=== PATIENT | female | born 1990 | race African-American/Black ===

== ENCOUNTER 2018-09-16 00:04 | Emergency (ER) | payer OTHER, SELFPAY ==
[2018-09-16] MEDS ORDERED: Loperamide HCl 2 MG CAP ONE (00:26)
[2018-09-16] MEDS ORDERED: HYDROcodone/Acetaminophen 10/325 mg Tablet ONE (00:26)
[2018-09-16] MEDS ORDERED: Ibuprofen 800 MG TAB ONE (00:26)
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
== END 2018-09-16 03:20 | disposition home or self-care (01) ==
LOC: ERS 00:04
DX: S00.83XA Contusion of other part of head, initial encounter (principal); S20.219A Contusion of unspecified front wall of thorax, initial encounter; F17.210 Nicotine dependence, cigarettes, uncomplicated; Y04.2XXA Assault by strike against or bumped into by another person, initial encounter
CPT/HCPCS: 70450; 70486; 71045

== ENCOUNTER 2018-09-19 09:46 | Emergency (ER) | payer SELFPAY | END 2018-09-19 10:09 | disposition home or self-care (01) | LOC: ERS 09:46 | DX: H02.844 Edema of left upper eyelid (principal); F17.210 Nicotine dependence, cigarettes, uncomplicated | CPT/HCPCS: 99281 ==

== ENCOUNTER 2018-10-18 16:48 | Emergency (ER) | payer SELFPAY ==
[2018-10-18 17:36] LABS: #Basophils 0.1 thou/uL (0.0-0.2); #Eosinphils 0.1 thou/uL (0.0-0.7); #Lymphocytes 2.3 thou/uL (1.20-3.40); #Monocytes 0.7 thou/uL (0.11-0.59); #Neutrophils 5.8 thou/uL (1.40-6.50); %Basophils 0.6 % (0.0-1.0); %Eosinophils 0.9 % (0.0-10.0); %Lymphocytes 25.7 % (21.0-51.0); %Monocytes 7.6 % (0.0-10.0); %Neutrophils 65.1 % (42.0-75.0); Hemoglobin 12.1 g/dL (12.0-16.0); Mean Corpuscular HGB CONC 33.2 g/dL (32.0-36.0); Mean Corpuscular Volume 90.3 fL (78.0-98.0); Mean Platelet Volume 6.6 fL (7.4-10.4); Platelet Count 256 thou/uL (130-400); RBC Distribution Width 11.7 % (11.5-14.5); Red Blood Cell (RBC) Count 4.03 mill/uL (4.20-5.40); White Blood Cell (WBC) Count 8.9 thou/uL (4.8-10.8)
[2018-10-18 17:48] LABS: BHCG - Serum Negative (NEGATIVE); Pregs Control Background? CLEAR/WHITE (CLR/WHITE); Pregs Control Bar Appear? YES (CONTROL BAR)
[2018-10-18 18:08] LABS: ALT (SGPT) 8 U/L (8-55); AST (SGOT) 15 U/L (5-34); Albumin 4.3 g/dL (3.5-5.0); Alkaline Phosphatase 72 U/L (40-150); Anion Gap 13 mmol/L (10-20); BUN (Urea Nitrogen) 8 mg/dL (7.0-18.7); Bilirubin, Total 0.3 mg/dL (0.2-1.2); Calc. Creatinine Clearance 0 mL/min (70-130); Calcium 9.2 mg/dL (7.8-10.44); Carbon Dioxide 22 mmol/L (22-29); Chloride 106 mmol/L (98-107); Estimated GFR-MDRD Greater than 90; Globulin 3.2 g/dL (2.4-3.5); Glucose 82 mg/dL (70-105); Potassium 3.7 mmol/L (3.5-5.1); Protein, Total 7.5 g/dL (6.0-8.3); Sodium 137 mmol/L (136-145)
== END 2018-10-18 18:35 | disposition home or self-care (01) ==
LOC: ERS 16:48
DX: R11.2 Nausea with vomiting, unspecified (principal); R19.7 Diarrhea, unspecified; F17.210 Nicotine dependence, cigarettes, uncomplicated
CPT/HCPCS: 36415; 80053; 84703; 85025; 99284

== ENCOUNTER 2018-12-21 13:36 | Emergency (ER) | payer SELFPAY | END 2018-12-21 14:18 | disposition home or self-care (01) | LOC: ERS 13:36 | DX: R10.9 Unspecified abdominal pain (principal); F17.210 Nicotine dependence, cigarettes, uncomplicated | CPT/HCPCS: 99281 ==

== ENCOUNTER 2020-07-25 09:31 | Emergency (ER) | payer SELFPAY | END 2020-07-25 11:10 | disposition short-term general hospital (02) | LOC: ERS 09:31 | DX: S62.621A Displaced fracture of middle phalanx of left index finger, initial encounter for closed fracture (principal); F17.210 Nicotine dependence, cigarettes, uncomplicated; X58.XXXA Exposure to other specified factors, initial encounter ==

== ENCOUNTER 2021-09-26 14:34 | Emergency (ER) | payer SELFPAY ==
[2021-09-26] MEDS ORDERED: Proparacaine 0.5% Opth 15 ML BOT ONE (14:53)
[2021-09-26] MEDS ORDERED: Fluorescein Opthalmic Strip ONE (14:56)
== END 2021-09-26 15:21 | disposition home or self-care (01) ==
LOC: ERS 14:34
DX: S05.02XA Injury of conjunctiva and corneal abrasion without foreign body, left eye, initial encounter (principal); F17.210 Nicotine dependence, cigarettes, uncomplicated; X58.XXXA Exposure to other specified factors, initial encounter
CPT/HCPCS: 99283

== ENCOUNTER 2023-03-20 09:32 | Emergency (ER) | payer SELFPAY ==
[2023-03-20] MEDS ORDERED: Dexamethasone 10 MG/ML VIAL ONE (10:16)
== END 2023-03-20 14:50 | disposition home or self-care (01) ==
LOC: ERS 09:32
DX: B34.9 Viral infection, unspecified (principal); F17.290 Nicotine dependence, other tobacco product, uncomplicated
CPT/HCPCS: 99283; J1100

== ENCOUNTER 2023-05-30 01:12 | Emergency (ER) | payer BC, SELFPAY ==
[2023-05-30] MEDS ORDERED: diphenhydrAMINE 25 MG CAP ONE (01:56)
[2023-05-30] MEDS ORDERED: predniSONE 20 MG TAB ONE (01:57)
== END 2023-05-30 02:11 | disposition home or self-care (01) ==
LOC: ERS 01:12
DX: T78.40XA Allergy, unspecified, initial encounter (principal); F17.290 Nicotine dependence, other tobacco product, uncomplicated
CPT/HCPCS: 99284; J7512